=== PATIENT | male | born 1995 | race Two or more races ===

== ENCOUNTER 2023-04-15 17:28 | Emergency (ER) | payer SELFPAY ==
[~2023-04-15] VITALS: Ht 162.6 cm; Wt 61.7 kg
--- NOTE | 2023-04-15 19:25 | NUR ---
PT TAKEN TO CT W/ TECH
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
[2023-04-15] MEDS ORDERED: ACETAMINOPHEN ES 500 MG TABLET ONE (19:48)
[2023-04-15] MEDS ORDERED: CEPHALEXIN MONOHYDRATE 500 MG CAPSULE PO ONE ×2 (19:48→20:00)
[2023-04-15] MEDS ORDERED: ACETAMINOPHEN ES 500 MG TABLET PO ONE (20:00)
[2023-04-15] MEDS ORDERED: CEPH500C2 PO (20:30)
--- NOTE | 2023-04-15 21:10 | NUR ---
Patient discharged to home in stable condition. Written and verbal after care instructions given. Patient verbalizes understanding of instruction.
[2023-04-15 21:13] VITALS: BP 114/72
== END 2023-04-15 21:10 | disposition home or self-care (01) ==
LOC: ER 17:31
DX: S01.512A Laceration without foreign body of oral cavity, initial encounter (principal); W50.0XXA Accidental hit or strike by another person, initial encounter; Y93.89 Activity, other specified; Y92.89 Other specified places as the place of occurrence of the external cause; Y99.8 Other external cause status
CPT/HCPCS: 70486-TC